=== PATIENT | female | born 1995 | race Caucasian/White ===

== ENCOUNTER 2021-11-24 13:56 | Emergency (ER) | payer OTHER ==
[~2021-11-24] VITALS: Ht 170.2 cm; Wt 106.6 kg
[2021-11-24] MEDS ORDERED: ADVIL200 MG PO (14:47)
[2021-11-24] MEDS ORDERED: NAPROSYN500 MG PO (14:53)
== END 2021-11-24 15:02 | disposition home or self-care (01) ==
LOC: ED 13:56
DX: R07.89 Other chest pain (principal); M54.10 Radiculopathy, site unspecified
CPT/HCPCS: 71046